=== PATIENT | female | born 1985 | race Caucasian/White ===

== ENCOUNTER 2023-01-23 15:16 | Emergency (ER) | payer SELFPAY ==
--- NOTE | 2023-01-23 15:37 | EDPHYS ---
Physician Documentation [facility] Name: Nicol Driscoll Age: 38 yrs Sex: Female : 1985 Arrival Date: 01/23/2023 Time: 15:16 Bed IW2 Private MD: ED Physician Otis Matute HPI: 01/23 15:34 This 37 yrs old Female presents to ER via Ambulatory with complaints of Toothache - rn Week(Severe). 15:34 The patient presents with pain. Onset: The symptoms/episode began/occurred 1 week(s) rn ago. Duration: The symptoms are continuous. Modifying factors: The symptoms are alleviated by nothing, the symptoms are aggravated by chewing, cold fluids, talking. Severity of symptoms: At their worst the symptoms were moderate, in the emergency department the symptoms are unchanged. The patient has experienced similar episodes in the past. Pt reports chronic dental problems, worse over last week, can't afford dentist so came here, has been taking kratom for pain and not helping. No fever. No trauma. . 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 - Social history:: Smoking status: Reported history of juuling and/or vaping. - Family history:: not pertinent. - Hospitalizations: : No recent hospitalization is reported. ROS: 15:34 Constitutional: Negative for fever, chills, and weight loss, ENT: + dental pain Neck: rn Negative for injury, pain, and swelling, Cardiovascular: Negative for chest pain, palpitations, and edema, Respiratory: Negative for shortness of breath, cough, wheezing, and pleuritic chest pain. Exam: 15:34 Constitutional: This is a well developed, well nourished patient who is awake, alert, rn and in no acute distress. ENT: poor dentition, has false teeth/veneers, no abscess, no focal swelling Vital Signs: 15:23 BP 112 / 73; Pulse 88; Resp 18; Temp 99; Pulse Ox 100% on R/A; Weight 68.04 kg; Height mb9 5 ft. 7 in. ; Pain 12/23; 15:23 Body Mass Index 23.49 (68.04 kg, 170.18 cm) mb9 15:23 Pain Scale: Adult mb9 MDM: 15:25 Patient medically screened. rn 15:34 Differential diagnosis: dental caries, dental abscess. Data reviewed: vital signs, rn nurses notes, and as a result, I will discharge patient. Counseling: I had a detailed discussion with the patient and/or guardian regarding: the historical points, exam findings, and any diagnostic results supporting the discharge/admit diagnosis, the need for outpatient follow up, to return to the emergency department if symptoms worsen or persist or if there are any questions or concerns that arise at home. Special discussion: I discussed with the patient/guardian in detail that at this point there is no indication for admission to the hospital. It is understood, however, that if the symptoms persist or worsen the patient needs to return immediately for re-evaluation. Based on the history and exam findings, there is no indication for further emergent testing or inpatient evaluation. I discussed with the patient/guardian the need to see a dentist for further evaluation of the symptoms. Administered Medications: No medications were administered Disposition Summary: 01/23/23 15:36 Discharge Ordered Location: Home rn Problem: new rn Symptoms: have improved rn Condition: Stable rn Diagnosis - Dental caries, unspecified rn Followup: rn - With: Private Physician - When: As needed - Reason: Recheck today's complaints, Re-evaluation by your physician Discharge Instructions: - Discharge Summary Sheet rn - Dental Caries, Adult rn Forms: - Medication Reconciliation Form rn - Thank You Letter rn - Antibiotic learning coach - Prescription Opioid Use rn - Patient Portal Instructions rn Prescriptions: - Clindamycin HCl 300 mg Oral Capsule - take 1 capsule by ORAL route every 6 hours for 10 days; 40 capsule; Refills: 0, rn Product Selection Permitted - Medrol (Landry) 4 mg Oral Tablets, Dose Pack - take 1 tablet by ORAL route as directed - follow package instructions; 1 rn packet; Refills: 0, Product Selection Permitted Signatures: Otis Matute MD MD rn Breneman, Yokasta Ross RN RN 9
--- NOTE | 2023-01-23 15:37 | ER ---
Nurse's Notes [facility] Name: Nicol Driscoll Age: 38 yrs Sex: Female : 1985 Arrival Date: 01/23/2023 Time: 15:16 Bed IW2 Private MD: Diagnosis: Dental caries, unspecified Presentation: 01/23 15:23 Chief complaint: Patient states: I've had this awful toothache for 1 week now and don't mb9 have money to go to a dentist. I just need some antibiotics or something". Coronavirus screen: Vaccine status: Patient reports being unvaccinated. Ebola Screen: No symptoms or risks identified at this time. Initial Sepsis Screen: Does the patient meet any 2 criteria? No. Patient's initial sepsis screen is negative. Does the patient have a suspected source of infection? No. Patient's initial sepsis screen is negative. Risk Assessment: Do you want to hurt yourself or someone else? Patient reports no desire to harm self or others. Onset of symptoms was January 23, 2023. 15:23 Method Of Arrival: Ambulatory 9 15:23 Acuity: SLIME 4 mb9 Triage Assessment: 15:25 General: Appears in no apparent distress. Behavior is calm, cooperative. Pain: mb9 Complains of pain in mouth Quality of pain is described as throbbing, Is continuous. EENT: Poor dentition noted. EENT: Reports pain. Neuro: Pedro Agitation-Sedation Scale (RASS): 0 - Alert and Calm Level of Consciousness is awake, alert, obeys commands, Oriented to person, place, time, situation, Appropriate for age. Cardiovascular: Patient's skin is warm and dry. Respiratory: Airway is patent Respiratory effort is even, unlabored, Respiratory pattern is regular, symmetrical. GI: No signs and/or symptoms were reported involving the gastrointestinal system. : No signs and/or symptoms were reported regarding the genitourinary system. Derm: Skin is pink, warm \\T\\ dry. Musculoskeletal: Range of motion: intact in all extremities. 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 - Social history:: Smoking status: Reported history of juuling and/or vaping. - Family history:: not pertinent. - Hospitalizations: : No recent hospitalization is reported. Screenin:26 [facility] ED Fall Risk Assessment (Adult) History of falling in the last 3 months, mb9 including since admission No falls in past 3 months (0 pts) Confusion or Disorientation No (0 pts) Intoxicated or Sedated No (0 pts) Impaired Gait No (0 pts) Mobility Assist Device Used No (0 pt) Altered Elimination No (0 pt) Score/Fall Risk Level 0 - 2 = Low Risk Oriented to surroundings, Maintained a safe environment, Educated pt \\T\\ family on fall prevention, incl call for assistance when getting out of bed. Abuse screen: Denies threats or abuse. Nutritional screening: No deficits noted. Tuberculosis screening: No symptoms or risk factors identified. Vital Signs: 15:23 BP 112 / 73; Pulse 88; Resp 18; Temp 99; Pulse Ox 100% on R/A; Weight 68.04 kg; Height mb9 5 ft. 7 in. ; Pain 7/10; 15:23 Body Mass Index 23.49 (68.04 kg, 170.18 cm) mb9 15:23 Pain Scale: Adult mb9 ED Course: 15:19 Patient arrived in ED. mg5 15:25 Triage completed. mb9 15:25 Otis Matute MD is Attending Physician. rn 15:25 Arm band placed on. mb9 15:40 No provider procedures requiring assistance completed. Patient did not have IV access mb9 during this emergency room visit. Administered Medications: No medications were administered Medication: 15:26 VIS not applicable for this client. mb9 Outcome: 15:36 Discharge ordered by . rn 15:40 Discharged to home ambulatory. mb9 15:40 Condition: stable 15:40 Discharge instructions given to patient, Instructed on discharge instructions, follow up and referral plans. Demonstrated understanding of instructions, follow-up care, medications, Prescriptions given X 2. 15:41 Patient left the ED. mb9 Signatures: Otis Matute MD MD rn Breneman, Yokasta Ross RN RN [facility] [place]
[2023-01-23 15:53] VITALS: BP 112/73; TEMP 99; O2SAT 100
== END 2023-01-23 15:41 | disposition home or self-care (01) ==
LOC: ER 15:16 → EDBD 15:16 → ER 15:41
DX: K02.9 Dental caries, unspecified (principal)
CPT/HCPCS: 99283